=== PATIENT | male | born 1975 | race Caucasian/White ===

== ENCOUNTER 2020-04-24 11:19 | Emergency (ER) | payer OTHER, SELFPAY ==
--- NOTE | ~2020-04-24 | XR_ITS ---
XR tibia fibula LT 2V 04/24/2020 11:42 INDICATION: Left leg pain PROCEDURE: 2 views left tibia/fibula COMPARISON: No prior studies for comparison. FINDINGS: Fracture, dislocation or subluxation is not identified. The soft tissues appear within norm al limits. No foreign bodies are identified. IMPRESSION: 1: NO ACUTE BONE OR JOINT ABNORMALITY IDENTIFIED. Reviewed, dictated and finalized at location A.
[2020-04-24 11:22] VITALS: BP 137/96; PULSE 90; RESP 18; TEMP 36.2; O2SAT 98
--- NOTE | 2020-04-24 11:40 | ED.LOWEXIN ---
HPI - Extremity Injury (Lower) General Chief Complaint: Extremity Injury, Lower Stated Complaint: left leg injury Time Seen by Provider: 04/24/20 11:31 Source: patient Mode of arrival: wheelchair Limitations: no limitations History of Present Illness HPI Narrative: This is a 45-year-old male that presents the emergency department for left lower extremity injury just prior to arrival. Reports he got his leg caught between his trailer and a concrete step to his porch. Reports it was only caught for about 30 seconds. Reports since he has had pain in the mid lower leg. Denies other injuries, decreased range of motion or numbness. Related Data Allergies Allergy/AdvReac Type Severity Reaction Status Date / Time poison lyndon extract Allergy Intermediate Rash Verified 04/24/20 11:27 poison oak extract Allergy Intermediate Rash Verified 04/24/20 11:27 poison sumac extract Allergy Intermediate Rash Verified 04/24/20 11:27 Review of Systems Review of Systems: Narrative: CONSTITUTIONAL: Denies fever MUSCULOSKELETAL: Reports myalgia NEUROLOGIC: Denies numbness All systems reviewed & are unremarkable except as noted in HPI and below PMFSH Past Medical History Medical History (Updated 04/24/20 @ 12:40 by Genny Victoria PA-C) No active medical problems Social History Social History (Updated 04/24/20 @ 12:37 by Genny Victoria PA-C) Substance use: never Gender identity (if verbalized by the patient): Male Exam Narrative: Exam Narrative: GENERAL: Well-appearing, well-nourished, and in no acute distress. HEAD: Normocephalic, atraumatic. EYES: EOMI. EXTREMITIES: Normal range of motion. No edema or obvious deformity. Normal DP pulses. Compartments are soft. Normal sensation. Normal cap refill SKIN: Warm, dry, no rash. NEURO: No focal deficits. Alert and oriented x3. PSYCH: Normal mood and affect Course Vital Signs Vital signs: Vital Signs Temperature 97.1 F L 04/24/20 11:22 Pulse Rate 90 04/24/20 11:22 Respiratory Rate 18 04/24/20 11:22 Blood Pressure 137/96 H 04/24/20 11:22 Pulse Oximetry 98 04/24/20 11:22 Temperature 97.1 F L 04/24/20 11:22 Pulse Rate 90 04/24/20 11:22 Respiratory Rate 18 04/24/20 11:22 Blood Pressure 137/96 H 04/24/20 11:22 Pulse Oximetry 98 04/24/20 11:22 MDM - Extremity Injury (Lower) MDM Narrative Medical decision making narrative: Patient presents the emergency department for left lower leg crush injury sustained just prior to arrival. Left tib-fib x-rays without acute findings. Patient is neurovascularly intact. Compartments are soft. Patient is stable and felt appropriate for further outpatient evaluation. He was given warnings to return to the ER Imaging Data Radiologist's impression: ITS Impressions Tibia/Fibula X-Ray 04/24/20 11:50 IMPRESSION: 1: NO ACUTE BONE OR JOINT ABNORMALITY IDENTIFIED. Critical Care Time Critical Care Time Critical Care Time: No Discharge Plan Discharge Clinical Impression: Crush injury lower leg Qualifiers: Encounter type: initial encounter Laterality: left Qualified Code(s): S87.82XA - Crushing injury of left lower leg, initial encounter Patient Disposition: Home, Self-Care Condition: Stable Instructions: Crush Injury (ED) Additional Instructions: Return to the emergency department if you experience fever, redness and swelling of your leg, numbness, worsening pain, or any other symptoms that are concerning to you Rest. Ice. Elevate. [id number] pain medication as needed Follow-up with primary care doctor Follow-up/Referrals: Aparna Reyes MD [Physician] - 3 Days PHYSICIAN,PLANT ATTENDANT OR ASSISTANT OPERATOR [Primary Care Provider] -
[2020-04-24] MEDS: IBUPROFEN 600 MG TABLET (13:35)
== END 2020-04-24 13:37 | disposition home or self-care (01) ==
PROVIDERS: Emergency Provider Emergency Medicine
DX: S87.82XA Crushing injury of left lower leg, initial encounter (principal); W23.0XXA Caught, crushed, jammed, or pinched between moving objects, initial encounter
CPT/HCPCS: 73590; 99283; A9270

== ENCOUNTER 2021-02-18 17:16 | Outpatient (CLI) | payer OTHER, SELFPAY | END 2021-02-18 17:17 | disposition home or self-care (01) | LOC: ANHCOVIDVC 17:16 | DX: Z23 Encounter for immunization (principal) | CPT/HCPCS: 0001A; 91300 ==

== ENCOUNTER 2021-03-11 17:23 | Outpatient (CLI) | payer OTHER, SELFPAY | END 2021-03-11 17:24 | disposition home or self-care (01) | LOC: ANHCOVIDVC 17:23 | DX: Z23 Encounter for immunization (principal) | CPT/HCPCS: 0002A; 91300 ==